=== PATIENT | female | born 1955 | race Caucasian/White ===

== ENCOUNTER 2020-09-09 00:57 | Emergency (ER) | payer OTHER ==
[2020-09-09] MEDS ORDERED: HYDROmorphone 1 MG/ML Syringe IVPUSH ONE (01:27)
[2020-09-09] MEDS ORDERED: Sodium Chloride 0.9% 10 ML Syringe FLUSH PRN (01:27)
[2020-09-09] MEDS ORDERED: Ketorolac 30 MG/ML SDV IVPUSH ONE (01:27)
--- NOTE | 2020-09-09 01:45 | EDM.PDOC ---
ED HPI GENERAL MEDICAL PROBLEM - General Chief Complaint: Lower Extremity Injury/Pain Stated Complaint: RT KNEE PAIN POST KNEE SURGERY TODAY Time Seen by Provider: 09/09/20 01:08 Source of Information: Reports: Patient History Limitations: Reports: No Limitations - History of Present Illness INITIAL COMMENTS - FREE TEXT/NARRATIVE: The patient presents with right knee pain and swelling. She had surgery yesterday with Dr Ingram. She had a knee scope to repair a meniscus. When she went home she was feeling fine and she could walk on her knee. Her pain was 3/10. She has pain to the lateral knee, behind her knee and down her leg. She did not injure her knee in any way. She does have swelling. She has no history of DVT or PE. She is supposed to start aspirin tomorrow. Onset: Gradual Duration: Hour(s): Location: Reports: Lower Extremity, Right (Knee) Quality: Reports: Sharp Severity: Severe Improves with: Reports: Immobilization Worsens with: Reports: Movement Context: Reports: Other (surgery yesterday) Treatments PRODUCE TEAM MEMBER: Reports: Cold Therapy, NSAIDS Other Treatments PRODUCE TEAM MEMBER: hydrocodone Right Knee Pain Score (Numeric/FACES): 10 - Related Data Allergies Allergy/AdvReac Type Severity Reaction Status Date / Time Iodinated Contrast Media AdvReac Dizziness Verified 09/09/20 01:15 Home Meds: Home Meds Acetaminophen/Diphenhydramine [Tylenol Pm Ex-Strength Caplet] 2 tab PO BEDTIME 09/05/20 [History] Aspirin [Aspirin EC] 325 mg PO BID #84 tab 09/05/20 [Rx] Calcium Carb/Vitamin D3/Vit K1 [Calcium + D Soft Chewable Tab] 1 tab PO DAILY 09/05/20 [History] Cholecalciferol (Vitamin D3) [Vitamin D3] 1,000 unit PO DAILY 09/05/20 [History] Citalopram [Citalopram HBr] 20 mg PO DAILY 09/05/20 [History] Ferrous Sulfate [Iron] 325 mg PO BID 09/05/20 [History] Hydrocodone/Acetaminophen [Hydrocodone-Acetamin 5-325 mg] 1 - 2 each PO Q6H PRN #12 tablet 09/05/20 [Rx] Melatonin 10 mg PO DAILY 09/05/20 [History] Methylcellulose [Fiber] 500 mg PO DAILY 09/05/20 [History] amLODIPine Besylate [Norvasc] 10 mg PO DAILY 09/05/20 [History] hydroCHLOROthiazide [Hydrochlorothiazide] 25 mg PO DAILY 09/05/20 [History] lisinopriL [Zestril] 60 mg PO DAILY 09/05/20 [History] Hydrocodone/Acetaminophen [Hydrocodone-Acetamin 5-325 mg] 1 - 2 each PO Q6H PRN #30 tablet 09/09/20 [Rx] Past Medical History HEENT History: Reports: Allergic Rhinitis, Impaired Vision, Other (See Below) Other HEENT History: wears glasses Cardiovascular History: Reports: Heart Murmur, High Cholesterol, Hypertension Respiratory History: Reports: Sleep Apnea, Other (See Below) Other Respiratory History: cough Gastrointestinal History: Reports: Diverticulosis, Hemorrhoids Genitourinary History: Reports: None TECHNICAL STAFF ASSISTANT History: Reports: None Musculoskeletal History: Reports: Other (See Below) Other Musculoskeletal History: right knee pain, right meniscus tear Neurological History: Reports: None Psychiatric History: Reports: Anxiety, Depression, Other (See Below) Other Psychiatric History: insomnia Endocrine/Metabolic History: Reports: Vitamin D Deficiency Hematologic History: Reports: Anemia, Iron Deficiency, Other (See Below) Other Hematologic History: hypokalemia Immunologic History: Reports: None Oncologic (Cancer) History: Reports: None Dermatologic History: Reports: Other (See Below) Other Dermatologic History: dermatitis - Infectious Disease History Infectious Disease History: Reports: None - Past Surgical History Head Surgeries/Procedures: Reports: None Cardiovascular Surgical History: Reports: None Respiratory Surgical History: Reports: None GI Surgical History: Reports: Colonoscopy, Other (See Below) Other GI Surgeries/Procedures: hemorrhoidectomy Female Surgical History: Reports: Breast Reduction, Section, Oophorectomy, Tubal Ligation Endocrine Surgical History: Reports: None Neurological Surgical History: Reports: None Musculoskeletal Surgical History: Reports: Other (See Below) Other Musculoskeletal Surgeries/Procedures:: foot surgery Oncologic Surgical History: Reports: None Dermatological Surgical History: Reports: None Social & Family History - Family History Family Medical History: No Pertinent Family History - Tobacco Use Tobacco Use Status *Q: Never Tobacco User Second Hand Smoke Exposure: No - Caffeine Use Caffeine Use: Reports: None - Recreational Drug Use Recreational Drug Use: No Review of Systems - Review of Systems Review Of Systems: See Below Constitutional: Reports: No Symptoms Eyes: Reports: No Symptoms Ears: Reports: No Symptoms Nose: Reports: No Symptoms Mouth/Throat: Reports: No Symptoms Respiratory: Reports: No Symptoms Cardiovascular: Reports: No Symptoms GI/Abdominal: Reports: No Symptoms Genitourinary: Reports: No Symptoms Musculoskeletal: Reports: Other (Right knee pain and swelling) ED EXAM, GENERAL - Physical Exam Exam: See Below Exam Limited By: No Limitations General Appearance: Alert, No Apparent Distress Ears: Normal External Exam Nose: Normal Inspection Head: Atraumatic, Normocephalic Neck: Normal Inspection Respiratory/Chest: No Respiratory Distress Extremities: Other (Moderate edema to the right knee with pain upon palpation to the right lateral knee and posterior to the knee. Good sensation and pulses distally) Course - Vital Signs Last Recorded V/S: Last Vital Signs Temp 98.8 F 09/09/20 01:10 Pulse 79 09/09/20 01:10 Resp 20 09/09/20 01:10 BP 168/80 H 09/09/20 01:10 Pulse Ox 98 09/09/20 01:10 - Orders/Labs/Meds Orders: Active Orders 24 hr Category Date Time Status Peripheral IV Care [RC] . DIRECTED Care 09/09/20 01:27 Active VL Duplex Lwr Ext Veins Ltd Rt [US] Stat Exams 09/09/20 01:26 Taken Sodium Chloride 0.9% [Saline Flush] Med 09/09/20 01:27 Active 10 ml FLUSH ASDIRECTED PRN Peripheral IV Insertion Adult [OM.PC] Routine Oth 09/09/20 01:27 Ordered Medication Orders Sodium Chloride (Sodium Chloride 0.9% 10 Ml Syringe) 10 ml FLUSH ASDIRECTED PRN PRN Reason: Keep Vein Open Last Admin: 09/09/20 01:39 Dose: 10 ml Documented by: MECHE Meds: Medications Generic Name Dose Route Start Last Admin Trade Name Freq PRN Reason Stop Dose Admin Sodium Chloride 10 ml 09/09/20 01:27 09/09/20 01:39 Sodium Chloride 0.9% 10 Ml Syringe FLUSH 10 ml ASDIRECTED PRN Administration Keep Vein Open Discontinued Medications Generic Name Dose Route Start Last Admin Trade Name Freq PRN Reason Stop Dose Admin Hydromorphone HCl 1 mg 09/09/20 01:27 09/09/20 01:40 Hydromorphone 1 Mg/Ml Syringe IVPUSH 09/09/20 01:28 1 mg ONETIME ONE Administration Hydromorphone HCl 0.5 mg 09/09/20 02:36 09/09/20 02:45 Hydromorphone 0.5 Mg/0.5 Ml Syringe IVPUSH 09/09/20 02:37 0.5 mg ONETIME ONE Administration Ketorolac Tromethamine 30 mg 09/09/20 01:27 09/09/20 01:38 Ketorolac 30 Mg/Ml Sdv IVPUSH 09/09/20 01:28 30 mg ONETIME ONE Administration - Re-Assessments/Exams Free Text/Narrative Re-Assessment/Exam: 09/09/20 01:46 I ordered an IV saline lock, toradol 30mg IV, dilaudid 1mg IV and an US of her leg. 09/09/20 03:27 The US looks good[address] Dr Ingram did have an ice machine here for his patient's so we gave her one and that felt better. She did get another dose of dilaudid. I will discharge her home with some more hydrocodone. Departure - Departure Time of Disposition: 15:30 Disposition: Home, Self-Care 01 Condition: Good Clinical Impression: Right knee pain Qualifiers: Chronicity: acute Qualified Code(s): M25.561 - Pain in right knee - Discharge Information *PRESCRIPTION DRUG MONITORING PROGRAM REVIEWED*: Not Applicable *COPY OF PRESCRIPTION DRUG MONITORING REPORT IN PATIENT NEERU: Not Applicable Prescriptions: Hydrocodone/Acetaminophen [Hydrocodone-Acetamin 5-325 mg] 1 - 2 each PO Q6H PRN #30 tablet PRN Reason: Pain Referrals: Sridevi Mcnair NP [Primary Care Provider] - Jerry Ingram MD [Physician] - 1 Week Forms: ED Department Discharge Additional Instructions: Use the icing machine. Take the hydrocodone 2 pills at 7am and then every 4 to 6 hours. You can also take some motrin every 6 hours. Follow up with Dr Ingram. Please return if you are worse. Sepsis Event Note (ED) - Evaluation Sepsis Screening Result: No Definite Risk - Focused Exam Vital Signs: Vital Signs Temp Pulse Resp BP Pulse Ox 09/09/20 01:10 98.8 F 79 20 168/80 H 98 - My Orders Last 24 Hours: My Active Orders 09/09/20 01:26 VL Duplex Lwr Ext Veins Ltd Rt [US] Stat 09/09/20 01:27 Peripheral IV Care [RC] . DIRECTED Sodium Chloride 0.9% [Saline Flush] 10 ml FLUSH ASDIRECTED PRN Peripheral IV Insertion Adult [OM.PC] Routine - Assessment/Plan Last 24 Hours: My Active Orders 09/09/20 01:26 VL Duplex Lwr Ext Veins Ltd Rt [US] Stat 09/09/20 01:27 Peripheral IV Care [RC] . DIRECTED Sodium Chloride 0.9% [Saline Flush] 10 ml FLUSH ASDIRECTED PRN Peripheral IV Insertion Adult [OM.PC] Routine
[2020-09-09] MEDS ORDERED: HYDROmorphone 0.5 MG/0.5 ML Syringe IVPUSH ONE (02:36)
--- NOTE | 2020-09-09 08:13 | US ---
Right lower extremity deep venous ultrasound: Duplex and color Doppler evaluation was obtained of the right common femoral, greater saphenous, superficial femoral, popliteal, posterior tibial and peroneal veins. Left common femoral vein was also evaluated. Comparison: No prior venous imaging is available. Findings: Deep veins show normal phasic flow, augmentation and compression. Impression: 1. No findings of deep venous thrombosis within the right lower extremity or within the left common femoral vein. Diagnostic code #1 I agree with preliminary report from [facility], finalized on 09/09/20, 6:28 AM CDT, code 1
== END 2020-09-09 03:40 | disposition home or self-care (01) ==
LOC: JD.ED 00:57
DX: M25.561 Pain in right knee (principal); I10 Essential (primary) hypertension; D64.9 Anemia, unspecified; Z91.041 Radiographic dye allergy status; Z79.82 Long term (current) use of aspirin; Z79.899 Other long term (current) drug therapy
CPT/HCPCS: 93971; 96374; 96375; 96376; 99283; J1170; J1885

== ENCOUNTER 2021-06-18 10:52 | Day surgery (SDC) | payer OTHER ==
[~2021-06-18 10:52] MED LIST: Lactated Ringers 1,000 ML IV SCH; Lidocaine 1%/Sod Bicarbonate in NS 8.4% 1 ML Syringe IDERM PRN; Sodium Chloride 0.9% 10 ML Syringe FLUSH PRN; Sodium Chloride 0.9% 10 ML Syringe FLUSH SCH
[2021-06-18] MEDS ORDERED: Propofol 200 MG/20 ML SDV ONE ×3 (11:09→13:24)
[2021-06-18] MEDS ORDERED: Lidocaine 1% 4 ML ONE (11:10)
[2021-06-18] MEDS ORDERED: fentaNYL 100 MCG/2 ML SDV ONE (12:26)
[2021-06-18] MEDS ORDERED: Midazolam 1 MG/ML 2 ML SDV ONE (12:47)
== END 2021-06-18 14:29 | disposition home or self-care (01) ==
LOC: JD.SDS 10:52
PROVIDERS: ATTEND Surgery
DX: K57.31 Diverticulosis of large intestine without perforation or abscess with bleeding (principal); K64.8 Other hemorrhoids; F41.9 Anxiety disorder, unspecified; I10 Essential (primary) hypertension; E78.5 Hyperlipidemia, unspecified; G47.33 Obstructive sleep apnea (adult) (pediatric); F32.A Depression, unspecified; E66.9 Obesity, unspecified; Z91.041 Radiographic dye allergy status; Z79.82 Long term (current) use of aspirin; Z79.899 Other long term (current) drug therapy; Z68.39 Body mass index [BMI] 39.0-39.9, adult
CPT/HCPCS: 45378; J2250; J2704; J3010; J7120

== ENCOUNTER 2024-06-25 08:31 | Day surgery (SDC) | payer MEDICARE, OTHER ==
[~2024-06-25 08:31] MED LIST changes: -Lactated Ringers 1,000 ML IV SCH; +Lactated Ringers 1,000 ML ONE; -Lidocaine 1%/Sod Bicarbonate in NS 8.4% 1 ML Syringe IDERM PRN; +Midazolam 1 MG/ML 2 ML SDV ONE; +Propofol 200 MG/20 ML SDV ONE; -Sodium Chloride 0.9% 10 ML Syringe FLUSH PRN; -Sodium Chloride 0.9% 10 ML Syringe FLUSH SCH; +ceFAZolin 2 GM Vial ONE
[2024-06-25] MEDS ORDERED: Bupivacaine 0.25% 10 ML SDV ONE (08:34)
[2024-06-25] MEDS ORDERED: Triamcinolone Acetonide 40 MG/ML 1 ML SDV ONE (08:34)
[2024-06-25] MEDS ORDERED: Pregabalin 75 MG Cap PO ONE (08:45)
[2024-06-25] MEDS: Lactated Ringers 1,000 ML IV SCH (09:05)
[2024-06-25] MEDS: Pregabalin 25 MG Cap PO ONE (09:11)
[2024-06-25] MEDS: oxyCODONE ER 10 MG TAB.ER PO ONE (09:11)
[2024-06-25] MEDS: Acetaminophen 325 MG Tab PO ONE (09:11)
[2024-06-25] MEDS ORDERED: Ondansetron 4 MG/2 ML SDV IVPUSH PRN (09:24)
[2024-06-25] MEDS ORDERED: fentaNYL 100 MCG/2 ML SDV IVPUSH PRN (09:24)
[2024-06-25] MEDS ORDERED: HYDROmorphone 0.5 MG/0.5 ML Syringe IVPUSH PRN (09:24)
[2024-06-25] MEDS ORDERED: ePHEDrine 50 MG/ML SDV ONE (10:37)
[2024-06-25] MEDS ORDERED: Lidocaine 1% 4 ML ONE (11:12)
[2024-06-25] MEDS: Morphine 8 MG, EPINEPHrine 0.3 MG, Cefuroxime 750 MG, Ketorolac 30 MG, Sodium Chloride ... PRN (11:13)
[2024-06-25] MEDS: VANCOmycin 1 GM SDV ONE (11:14)
[2024-06-25] MEDS: Tranexamic Acid 1,000 MG/10 ML Vial ONE (11:14)
[2024-06-25] MEDS ORDERED: Ketorolac 30 MG/ML SDV ONE (11:27)
[2024-06-25] MEDS: oxyCODONE 5 MG Tab PO PRN (13:10)
== END 2024-06-25 15:25 | disposition home or self-care (01) ==
LOC: JD.SDS 08:31
PROVIDERS: ATTEND Orthopaedic Surgery
DX: M16.12 Unilateral primary osteoarthritis, left hip (principal); M17.0 Bilateral primary osteoarthritis of knee; I25.10 Atherosclerotic heart disease of native coronary artery without angina pectoris; E78.5 Hyperlipidemia, unspecified; I10 Essential (primary) hypertension; Z91.041 Radiographic dye allergy status; Z79.82 Long term (current) use of aspirin; Z79.899 Other long term (current) drug therapy
CPT/HCPCS: 0055T; 20610; 27130; 73501; 97116; 97161; A9270; C1713; C1776; J0171; J0665; J0690; J0697; J1885; J2003; J2250; J2272; J2704; J3301; J7120; 01214; J3490